=== PATIENT | female | born 1965 | race African-American/Black ===

== ENCOUNTER 2018-04-04 08:39 | Emergency (ER) | payer OTHER ==
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
[2018-04-04 09:29] VITALS: BP 148/93; TEMP 98.1; O2SAT 97
== END 2018-04-04 09:09 | disposition home or self-care (01) ==
LOC: ER 08:39
DX: M79.1 Myalgia (principal); V49.49XA Driver injured in collision with other motor vehicles in traffic accident, initial encounter; I10 Essential (primary) hypertension; Z88.8 Allergy status to other drugs, medicaments and biological substances; Z91.040 Latex allergy status; Z91.048 Other nonmedicinal substance allergy status
CPT/HCPCS: 99284

== ENCOUNTER 2019-09-06 07:41 | Emergency (ER) | payer OTHER ==
[2019-09-06] MEDS ORDERED: cloNIDine HCl 0.1 MG TAB ONE (08:24)
--- NOTE | 2019-09-06 08:54 | EKG ---
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
--- NOTE | 2019-09-06 09:22 | RAD REPORT ---
EXAM DESCRIPTION: Bailey Jordan (2 Views)09/06/2019 8:42 am CLINICAL HISTORY: Cough COMPARISON: 2017 FINDINGS: The lungs appear clear of acute infiltrate. The heart is normal size IMPRESSION: No acute abnormalities displayed
--- NOTE | 2019-09-06 09:55 | RAD REPORT ---
EXAM DESCRIPTION: CT - Head Brain Wo Cont - 09/06/2019 9:43 am CLINICAL HISTORY: Headache COMPARISON: 2018 TECHNIQUE: Computed axial tomography of the head was obtained. IV contrast was not requested. All CT scans are performed using dose optimization technique as appropriate and may include automated exposure control or mA/KV adjustment according to patient size. FINDINGS: An intracranial bleed is not seen . The ventricles are normal in caliber. No extra-axial fluid collection is noted. Mild to moderate low-density areas within periventricular, deep and subcortical white matter may naina jasper ischemic changes secondary to small vessel disease. No significant change since the prior exam Fluid within the sinuses/ mastoids is not seen. IMPRESSION: No acute intracranial abnormality is seen. If patient's symptoms persist MRI of the bra in would be recommended.
[2019-09-06] MEDS ORDERED: NA CHLORIDE 0.9% 1,000 ML ONE (10:21)
[2019-09-06] MEDS ORDERED: KETOROLAC 30 MG/ML INJ ONE (10:21)
[2019-09-06] MEDS ORDERED: DIPHENHYDRAMINE 50 MG/ML VIAL ONE (10:21)
[2019-09-06] MEDS ORDERED: METOCLOPRAMIDE 10 MG/2mL INJ ONE (10:21)
[2019-09-06 11:40] LABS: Absolute Lymphocytes (CBC) 1.4 K/uL (0.7-4.9); Basophils % 0.4 % (0-1.3); Hematocrit 36.3 % (36.0-45.0); Lymphocytes % 33.8 % (15.3-44.8); MPV 7.9 fL (7.6-11.3); RBC Red Blood Cell Count 4.32 M/uL (3.86-4.86)
[2019-09-06 11:58] LABS: Potassium 3.8 mmol/L (3.5-5.1)
--- NOTE | 2019-09-06 12:25 | RAD REPORT ---
EXAM DESCRIPTION: CT - Head angio - 09/06/2019 12:17 pm CLINICAL HISTORY: HEADACHE TECHNIQUE: During dynamic enhancement using nonionic IV contrast, axial 1 millimeter thick images of the head were obtained. Sagittal and axial reconstruction images were generated using MIP technique and reviewed. All CT scans are performed using dose optimization technique as appropriate and may include automated exposure control or mA/KV adjustment according to patient size. COMPARISON: CT head September 06 FINDINGS: No aneurysm or vascular malformation identified. Major venous sinuses are patent. No stenosis, named branch occlusion, vasculitis or other significant vascular finding identifiable. IMPRESSION: Negative CT angio head examination.
--- NOTE | 2019-09-06 12:30 | ER ---
Nurse's Notes [facility] Name: Nichelle Samuels Age: 54 yrs Sex: Female : 1965 Arrival Date: 09/06/2019 Time: 07:43 Bed 19 Private MD: Adolph Hernandes Diagnosis: Essential (primary) hypertension;Acute upper respiratory infection, unspecified;Headache Presentation: 09/06 07:59 Presenting complaint: Patient states: intermittent headache all week, also has scratchy iw throat, cough, mild chest pain when deep breathing, +hx of migraines but this headache feels different, also BP was high at home +blurry vision, +sensitivity to light. Transition of care: patient was not received from another setting of care. Onset of symptoms was August 31, 2019. Risk Assessment: Do you want to hurt yourself or someone else? Patient reports no desire to harm self or others. Initial Sepsis Screen: Does the patient meet any 2 criteria? No. Patient's initial sepsis screen is negative. Does the patient have a suspected source of infection? No. Patient's initial sepsis screen is negative. Care prior to arrival: None. 07:59 Method Of Arrival: Ambulatory iw 07:59 Acuity: CHANDLER 3 iw Triage Assessment: 08:02 Headache History: The patient has had previous headaches and this one is different than iw previous episodes. General: Appears in no apparent distress. 08:15 General: Behavior is cooperative, appropriate for age, anxious. Pain: Pain currently is bp 7 out of 10 on a pain scale. Pain began 1 day ago. Also complains of no other associated symptoms. Historical: - Allergies: 08:03 Latex, Natural Rubber; iw 08:03 Propranolol; iw - Home Meds: 08:24 amlodipine 10 mg tab 1 tab once daily [Active]; aspirin 81 mg Oral chew 1 tab once iw daily [Active]; citalopram 40 mg oral tab once daily [Active]; clopidogrel 75 mg Oral tab 1 tab once daily [Active]; lisinopril 20 mg oral tab twice a day [Active]; hydrochlorothiazide 25 mg Oral tab 1 tab 2 times per day [Active]; gabapentin 400 mg oral cap 1 cap 3 times per day [Active]; tizanidine 4 mg Oral tab 1 tab twice a day [Active]; ProAir HFA 90 mcg/actuation inhalation HFAA 2 puffs every 4-6 hours [Active]; Repatha Syringe 140 mg/mL subcutaneous syrg every 2 wks [Active]; unknown injection for headache as needed [Active]; Neurontin 100 mg Oral cap 1 caps twice a day [Active]; [place] 10-325 mg Oral tab 1 tab twice a day [Active]; 13:04 Crestor 10 mg Oral tab 1 tab once daily [Active]; bp - PMHx: 08:03 Asthma; CVA; DVT; Hyperlipidemia; Hypertension; Lupus; iw - PSHx: 08:03 multiple shoulder surgery; stent in right carotid artery; Hysterectomy; iw - Immunization history:: Adult Immunizations not up to date. - Social history:: Smoking status: Patient/guardian denies using tobacco. - Ebola Screening: : Patient negative for fever greater than or equal to 101.5 degrees Fahrenheit, and additional compatible Ebola Virus Disease symptoms Patient denies exposure to infectious person Patient denies travel to an Ebola-affected area in the 21 days before illness onset No symptoms or risks identified at this time. Screenin:12 Abuse screen: Denies threats or abuse. Denies injuries from another. Nutritional bp screening: No deficits noted. Tuberculosis screening: No symptoms or risk factors identified. Fall Risk None identified. Assessment: 08:11 General: SEE TRIAGE NOTE. Pain: Complains of pain in head. Neuro: Level of bp Consciousness is awake, alert, obeys commands, Oriented to person, place, time, situation, Appropriate for age. 09:47 Reassessment: PT RETURNED FROM CT. ALL CURRENT ORDERS COMPLETED. bp 11:36 Reassessment: CT ANGIO PENDING. bp 12:22 Reassessment: PT RETURNED FROM CTA. bp 13:02 Reassessment: PT D/C HOME AMBULATORY WITH FAMILY, DX WITH ESSENTIAL HTN. bp Vital Signs: 08:03 BP 166 / 100; Pulse 79; Resp 18; Temp 98.2; Pulse Ox 100% on R/A; Weight 69.4 kg; iw Height 5 ft. 2 in. (157.48 cm); Pain 6/10; 09:11 BP 135 / 100; Pulse 71; Resp 16; Pulse Ox 100% ; bp 09:49 BP 145 / 81; Pulse 64; Resp 17; Pulse Ox 98% ; bp 10:31 BP 127 / 88; Pulse 96; Resp 16; Pulse Ox 100% ; bp 11:36 BP 143 / 94; Pulse 54; Resp 16; Pulse Ox 99% ; bp 12:22 BP 125 / 90; Pulse 78; Resp 17; Pulse Ox 100% ; bp 08:03 Body Mass Index 27.98 (69.40 kg, 157.48 cm) iw NIH Stroke Scale Scores: 08:27 NIHSS Score: 0 kb ED Course: 07:43 Patient arrived in ED. rg4 07:43 Adolph Hernandes DO is Private Physician. rg4 07:51 Herman Piper, CARRIE is Primary Nurse. bp 07:51 [facility]. kb 07:51 Sixto Patel MD is Attending Physician. kb 08:02 Triage completed. iw 08:12 Patient has correct armband on for positive identification. Bed in low position. Call bp light in reach. Side rails up X2. 08:22 Strep Sent. dh3 08:22 Flu Sent. dh3 08:22 Flu and/or RSV swab sent to lab. Strep swab sent to lab. dh3 08:42 Chest Pa And Lat (2 Views) XRAY In Process Unspecified. EDMS 09:44 CT Head Brain wo Cont In Process Unspecified. EDMS 10:01 Throat Culture Sent. bp 10:19 Inserted saline lock: 22 gauge in right forearm, using aseptic technique. bp 12:18 CT Head Angio In Process Unspecified. EDMS 12:29 Adolph Hernandes DO is Referral Physician. kb 13:02 No provider procedures requiring assistance completed. IV discontinued, intact, bp bleeding controlled, No redness/swelling at site. Pressure dressing applied. 13:03 Arm band placed on. bp Administered Medications: 08:15 Drug: cloNIDine 0.1 mg Route: PO; bp 09:12 Follow up: Response: Blood pressure is lowered bp 10:20 Drug: NS 0.9% 1000 ml Route: IV; Rate: 1000 ml; Site: right forearm; bp 13:05 Follow up: IV Status: Completed infusion; IV Intake: 1000ml bp 10:20 Drug: Reglan 10 mg Route: IVP; Site: right forearm; bp 13:05 Follow up: Response: No adverse reaction bp 10:20 Drug: TORadol - Ketorolac 15 mg Route: IVP; Site: right forearm; bp 13:04 Follow up: Response: No adverse reaction bp 10:20 Drug: Benadryl 12.5 mg Route: IVP; Site: right forearm; bp 13:04 Follow up: Response: No adverse reaction bp Intake: 13:05 IV: 1000ml; Total: 1000ml. bp Outcome: 12:29 Discharge ordered by . holden 13:02 Discharged to home ambulatory, with family. bp 13:02 Condition: stable 13:02 Discharge instructions given to patient, Instructed on discharge instructions, follow up and referral plans. Demonstrated understanding of instructions, follow-up care. 13:05 Patient left the ED. bp NIH Stroke Scale - NIH Stroke Score Date: 09/06/2019 Time: 08:27 Total Score = 0 1a. Level of Consciousness (LOC) - 0(Alert) 1b. Level of Consciousness (LOC) (Year \T\ Age) - 0(Both) 1c. LOC Commands (Open \T\ Closes Eyes/Logistic Manager) - 0(Both) 2. Best Gaze (Lateral Gaze Paresis) - 0(Normal) 3. Visual Field Loss - 0(No visual loss) 4. Facial Palsy - 0(Normal) 5a. Left Arm: Motor (10-second hold) - 0(No drift) 5b. Right Arm: Motor (10-second hold) - 0(No drift) 6a. Left Leg: Motor (5-second hold - always test supine) - 0(No drift) 6b. Right Leg: Motor (5-second hold - always test supine) - 0(No drift) 7. Limb Ataxia (finger/nose \T\ heel/chi - test with eyes open) - 0(Absent) 8. Sensory Loss (pinprick arms/legs/face) - 0(Normal) 9. Best Language: Aphasia (description/naming/reading) - 0(No aphasia) 10. Dysarthria (speech clarity - read or repeat words) - 0(Normal) 11. Extinction and Inattention (visual/tactile/auditory/spatial/personal) - 0(No abnormality) Initials: holden Signatures: Dispatcher [employer] EDLu Herrera, [employer] CORPORATE OFFICER-Autumn Blevins, RN RN iw Janelle Pepe 4 Areli Lee 3 Herman Piper RN RN bp
--- NOTE | 2019-09-06 12:31 | EDPHYS ---
Physician Documentation [facility] Name: Nichelle Samuels Age: 54 yrs Sex: Female : 1965 Arrival Date: 09/06/2019 Time: 07:43 Bed 19 Private MD: Adolph Hernandes ED Physician Sixto Patel HPI: 09/06 08:31 This 54 yrs old Black Female presents to ER via Ambulatory with complaints of High kb Blood Pressure, Headache, Body Aches. 08:31 The patient or guardian reports cough, that is intermittent, described as mild, with no kb sputum, flu symptoms, myalgias. Onset: The symptoms/episode began/occurred yesterday. Severity of symptoms: At their worst the symptoms were mild, in the emergency department the symptoms are unchanged. Modifying factors: The symptoms are alleviated by nothing, the symptoms are aggravated by nothing. Associated signs and symptoms: Pertinent positives: sore throat. The patient has not experienced similar symptoms in the past. The patient has not recently seen a physician. Pt reports she has had a dry cough and sore throat for a couple of days, headache started last night. Still had headache this morning so she checked her blood pressure and it was 148/100 so she came in. Reports her PCP increased her BP medications because it wouldn't stay under control. Reports similar headache when her BP has been high in the past. . Historical: - Allergies: 08:03 Latex, Natural Rubber; iw 08:03 Propranolol; iw - Home Meds: 08:24 amlodipine 10 mg tab 1 tab once daily [Active]; aspirin 81 mg Oral chew 1 tab once iw daily [Active]; citalopram 40 mg oral tab once daily [Active]; clopidogrel 75 mg Oral tab 1 tab once daily [Active]; lisinopril 20 mg oral tab twice a day [Active]; hydrochlorothiazide 25 mg Oral tab 1 tab 2 times per day [Active]; gabapentin 400 mg oral cap 1 cap 3 times per day [Active]; tizanidine 4 mg Oral tab 1 tab twice a day [Active]; ProAir HFA 90 mcg/actuation inhalation HFAA 2 puffs every 4-6 hours [Active]; Repatha Syringe 140 mg/mL subcutaneous syrg every 2 wks [Active]; unknown injection for headache as needed [Active]; Neurontin 100 mg Oral cap 1 caps twice a day [Active]; [place] 10-325 mg Oral tab 1 tab twice a day [Active]; 13:04 Crestor 10 mg Oral tab 1 tab once daily [Active]; bp - PMHx: 08:03 Asthma; CVA; DVT; Hyperlipidemia; Hypertension; Lupus; iw - PSHx: 08:03 multiple shoulder surgery; stent in right carotid artery; Hysterectomy; iw - Immunization history:: Adult Immunizations not up to date. - Social history:: Smoking status: Patient/guardian denies using tobacco. - Ebola Screening: : Patient negative for fever greater than or equal to 101.5 degrees Fahrenheit, and additional compatible Ebola Virus Disease symptoms Patient denies exposure to infectious person Patient denies travel to an Ebola-affected area in the 21 days before illness onset No symptoms or risks identified at this time. ROS: 08:29 Eyes: Negative for injury, pain, redness, and discharge, Neck: Negative for injury, kb pain, and swelling, Cardiovascular: Negative for chest pain, palpitations, and edema, Abdomen/GI: Negative for abdominal pain, nausea, vomiting, diarrhea, and constipation, Back: Negative for injury and pain, MS/Extremity: Negative for injury and deformity, Skin: Negative for injury, rash, and discoloration. 08:29 ENT: Positive for sore throat. 08:29 Respiratory: Positive for cough, Negative for dyspnea on exertion, hemoptysis, orthopnea, pleurisy, shortness of breath, sputum production, wheezing. 08:29 Neuro: Positive for headache. 08:33 Constitutional: Positive for body aches. kb Exam: 08:27 Constitutional: This is a well developed, well nourished patient who is awake, alert, kb and in no acute distress. Head/Face: Normocephalic, atraumatic. Eyes: Pupils equal round and reactive to light, extra-ocular motions intact. Lids and lashes normal. Conjunctiva and sclera are non-icteric and not injected. Cornea within normal limits. Periorbital areas with no swelling, redness, or edema. ENT: Nares patent. No nasal discharge, no septal abnormalities noted. Tympanic membranes are normal and external auditory canals are clear. Oropharynx with no redness, swelling, or masses, exudates, or evidence of obstruction, uvula midline. Mucous membranes moist. Neck: Trachea midline, no thyromegaly or masses palpated, and no cervical lymphadenopathy. Supple, full range of motion without nuchal rigidity, or vertebral point tenderness. No Meningismus. Chest/axilla: Normal chest wall appearance and motion. Nontender with no deformity. No lesions are appreciated. Cardiovascular: Regular rate and rhythm with a normal S1 and S2. No gallops, murmurs, or rubs. Normal PMI, no JVD. No pulse deficits. Respiratory: Lungs have equal breath sounds bilaterally, clear to auscultation and percussion. No rales, rhonchi or wheezes noted. No increased work of breathing, no retractions or nasal flaring. Abdomen/GI: Soft, non-tender, with normal bowel sounds. No distension or tympany. No guarding or rebound. No evidence of tenderness throughout. Skin: Warm, dry with normal turgor. Normal color with no rashes, no lesions, and no evidence of cellulitis. MS/ Extremity: Pulses equal, no cyanosis. Neurovascular intact. Full, normal range of motion. Neuro: Awake and alert, GCS 15, oriented to person, place, time, and situation. Cranial nerves II-XII grossly intact. Motor strength 5/5 in all extremities. Sensory grossly intact. Cerebellar exam normal. Normal gait. Vital Signs: 08:03 BP 166 / 100; Pulse 79; Resp 18; Temp 98.2; Pulse Ox 100% on R/A; Weight 69.4 kg; iw Height 5 ft. 2 in. (157.48 cm); Pain 6/10; 09:11 BP 135 / 100; Pulse 71; Resp 16; Pulse Ox 100% ; bp 09:49 BP 145 / 81; Pulse 64; Resp 17; Pulse Ox 98% ; bp 10:31 BP 127 / 88; Pulse 96; Resp 16; Pulse Ox 100% ; bp 11:36 BP 143 / 94; Pulse 54; Resp 16; Pulse Ox 99% ; bp 12:22 BP 125 / 90; Pulse 78; Resp 17; Pulse Ox 100% ; bp 08:03 Body Mass Index 27.98 (69.40 kg, 157.48 cm) iw NIH Stroke Scale Scores: 08:27 NIHSS Score: 0 kb MDM: 07:51 Patient medically screened. kb 08:28 Data reviewed: vital signs, nurses notes. Data interpreted: Pulse oximetry: on room air kb is 100 %. Interpretation: normal. ED course: Stroke scale negative. Pt working on laptop while in room.. 10:16 ED course: Pt reports she is still having a headache. Educated that since she is still kb having the headache with a normal blood pressure I will give her medications for the pain now. Pt requests IV medications. Has history of migraines. . 11:15 ED course: PT concerned that her BP came back up to 139/96. Headache gone after kb medications. Discussed pt condition and diagnostics with ERP. Will do labs and CT angio due to pt's history. Pt educated on plan and is in agreement. . 12:29 Counseling: I had a detailed discussion with the patient and/or guardian regarding: the kb historical points, exam findings, and any diagnostic results supporting the discharge/admit diagnosis, lab results, radiology results, the need for outpatient follow up, a family practitioner, to return to the emergency department if symptoms worsen or persist or if there are any questions or concerns that arise at home. 09/06 08:07 Order name: Flu; Complete Time: 08:42 kb 09/06 08:07 Order name: Strep; Complete Time: 08:37 kb 09/06 08:07 Order name: Chest Pa And Lat (2 Views) XRAY; Complete Time: 09:26 kb 09/06 08:40 Order name: Throat Culture EDMS 09/06 11:14 Order name: CBC with Diff; Complete Time: 11:49 kb 09/06 11:14 Order name: Basic Metabolic Panel; Complete Time: 12:06 kb 09/06 08:07 Order name: EKG; Complete Time: 08:07 kb 09/06 09:26 Order name: CT Head Brain wo Cont; Complete Time: 09:58 kb 09/06 11:14 Order name: CT Head Angio; Complete Time: 12:29 kb 09/06 08:07 Order name: EKG - Nurse/Tech; Complete Time: 08:22 kb 09/06 10:14 Order name: IV Start; Complete Time: 10:19 kb Administered Medications: 08:15 Drug: cloNIDine 0.1 mg Route: PO; bp 09:12 Follow up: Response: Blood pressure is lowered bp 10:20 Drug: NS 0.9% 1000 ml Route: IV; Rate: 1000 ml; Site: right forearm; bp 13:05 Follow up: IV Status: Completed infusion; IV Intake: 1000ml bp 10:20 Drug: Reglan 10 mg Route: IVP; Site: right forearm; bp 13:05 Follow up: Response: No adverse reaction bp 10:20 Drug: TORadol - Ketorolac 15 mg Route: IVP; Site: right forearm; bp 13:04 Follow up: Response: No adverse reaction bp 10:20 Drug: Benadryl 12.5 mg Route: IVP; Site: right forearm; bp 13:04 Follow up: Response: No adverse reaction bp Disposition: 13:35 Co-signature as Attending Physician, Sixto Patel MD. rn Disposition: 09/06/19 12:29 Discharged to Home. Impression: Essential (primary) hypertension, Acute upper respiratory infection, unspecified, Headache. - Condition is Stable. - Discharge Instructions: Upper Respiratory Infection, Adult, Ucom-dt-Kqpy, Hypertension, Aoao-tl-Wpwi, Migraine Headache, Hkmx-ic-Cjqq, Viral Respiratory Infection, Udcc-Pa-Civy. - Medication Reconciliation Form, Thank You Letter, Antibiotic Education, Prescription Opioid Use, Work release form form. - Follow up: Emergency Department; When: As needed; Reason: Worsening of condition. Follow up: Adolph Hernandes DO; When: 2 - 3 days; Reason: Recheck today's complaints, Continuance of care, Re-evaluation by your physician. NIH Stroke Scale - NIH Stroke Score Date: 09/06/2019 Time: 08:27 Total Score = 0 1a. Level of Consciousness (LOC) - 0(Alert) 1b. Level of Consciousness (LOC) (Year \T\ Age) - 0(Both) 1c. LOC Commands (Open \T\ Closes Eyes/Assistant County Attorney) - 0(Both) 2. Best Gaze (Lateral Gaze Paresis) - 0(Normal) 3. Visual Field Loss - 0(No visual loss) 4. Facial Palsy - 0(Normal) 5a. Left Arm: Motor (10-second hold) - 0(No drift) 5b. Right Arm: Motor (10-second hold) - 0(No drift) 6a. Left Leg: Motor (5-second hold - always test supine) - 0(No drift) 6b. Right Leg: Motor (5-second hold - always test supine) - 0(No drift) 7. Limb Ataxia (finger/nose \T\ heel/chi - test with eyes open) - 0(Absent) 8. Sensory Loss (pinprick arms/legs/face) - 0(Normal) 9. Best Language: Aphasia (description/naming/reading) - 0(No aphasia) 10. Dysarthria (speech clarity - read or repeat words) - 0(Normal) 11. Extinction and Inattention (visual/tactile/auditory/spatial/personal) - 0(No abnormality) Initials: kb Signatures: Dispatcher [employer] EDMS Lu Aguiar, MASTER PLANNER-C MASTER PLANNER-Ckb Autumn Barrios, CARRIE RN Sixto Lopez MD MD rn Peltier, Brian, RN RN bp Corrections: (The following items were deleted from the chart) 08:33 08:29 Constitutional: Negative for fever, chills, and weight loss, Eyes: kb Negative for injury, pain, redness, and discharge, Neck: Negative for injury, pain, and swelling, Cardiovascular: Negative for chest pain, palpitations, and edema, Abdomen/GI: Negative for abdominal pain, nausea, vomiting, diarrhea, and constipation, Back: Negative for injury and pain, MS/Extremity: Negative for injury and deformity, Skin: Negative for injury, rash, and discoloration, kb 11:17 10:08 Counseling: I had a detailed discussion with the patient and/or guardian holden regarding: the historical points, exam findings, and any diagnostic results supporting the discharge/admit diagnosis, lab results, radiology results, the need for outpatient follow up, a family practitioner, to return to the emergency department if symptoms worsen or persist or if there are any questions or concerns that arise at home, kb 13:05 12:29 09/06/2019 12:29 Discharged to Home. Impression: Essential (primary) bp hypertension; Acute upper respiratory infection, unspecified; Headache. Condition is Stable. Forms are Medication Reconciliation Form, Thank You Letter, Antibiotic Education, Prescription Opioid Use. Follow up: Emergency Department; When: As needed; Reason: Worsening of condition. Follow up: Adolph Hernandes; When: 2 - 3 days; Reason: Recheck today's complaints, Continuance of care, Re-evaluation by your physician. kb
[2019-09-06 13:13] VITALS: TEMP 98.2
[2019-09-06 13:20] VITALS: BP 125/90; O2SAT 100
== END 2019-09-06 13:05 | disposition home or self-care (01) ==
LOC: ER 07:41
DX: I10 Essential (primary) hypertension (principal); J06.9 Acute upper respiratory infection, unspecified; E78.5 Hyperlipidemia, unspecified; J45.909 Unspecified asthma, uncomplicated; Z79.82 Long term (current) use of aspirin; Z88.8 Allergy status to other drugs, medicaments and biological substances; Z86.718 Personal history of other venous thrombosis and embolism; Z86.73 Personal history of transient ischemic attack (TIA), and cerebral infarction without residual deficits; Z91.040 Latex allergy status; Z91.048 Other nonmedicinal substance allergy status; Z95.818 Presence of other cardiac implants and grafts
CPT/HCPCS: 96361; 93005; 87070; 85025; 80048; 36415; 87081; 87804 ×2; 70450; 70496; 71046; 96375; 96374; 99284; Q9967; J2765; J1200; J7030

== ENCOUNTER 2019-12-24 06:16 | Day surgery (SDC) | payer MEDICARE ==
[2019-12-23 12:21] LABS: Basophils % 0.7 % (0-1.3); Hematocrit 41.2 % (36.0-45.0); MPV 8.2 fL (7.6-11.3); RBC Red Blood Cell Count 4.92 M/uL (3.86-4.86)
[2019-12-23 12:35] LABS: BUN Blood Urea Nitrogen 18 mg/dL (7-18); Bicarbonate 29 mmol/L (21-32); Glucose Level 71 mg/dL (74-106); Potassium 3.9 mmol/L (3.5-5.1); Sodium Level 140 mmol/L (136-145)
--- OUTSIDE RECORDS SUMMARY | 2019-12-24 06:24 | XMS REPORT ---
:1965 Author Organization [facility] Address [address] [place] [address] [address] [place] [address] Care Team Providers Name Role Phone Unavailable Unavailable Unavailable Problems This patient has no known problems. Allergies, Adverse Reactions, Alerts This patient has no known allergies or adverse reactions. Medications This patient has no known medications.
--- OUTSIDE RECORDS SUMMARY | 2019-12-24 06:25 | XMS REPORT | Summary of Care ---
:1965 Author Name Misa Masterson M.A. Address Unavailable Unavailable , Care Team Providers Name Role Phone WENDY SWANSON M.D. Unavailable Unavailable JONATAN NEELY M.D. Unavailable Unavailable VICTOR MANUEL MELENDEZ Unavailable Unavailable CHONG VILLARREAL Unavailable Unavailable FLORINDA OBRIEN [place], JONATAN PLATT Unavailable Unavailable Unavailable Unavailable Unavailable Functional Status Name Dates Details Functional status health issues are not documented Status: Name Dates Details Cognitive status health issues are not documented Status: Problems Name Dates Details Acute bursitis of left shoulder (726.10, M75.52) Status: Active Anxiety disorder (300.00, F41.9) Status: Active Dissection of carotid artery (443.21, I77.71) Status: Active Cerebral embolism (434.10, I66.9) Status: Active Knee pain, left (719.46, M25.562) Status: Active Medications Name Dates Details Cyclobenzaprine HCl - 10 MG Oral Tablet TAKE 1 TABLET 3 TIMES DAILY NEEDED. Quantity: 30 Refills: 0 VICTOR MANUEL MELENDEZ Start : 07-Jun-2016 Active Acetaminophen-Codeine 300-30 MG Oral Tablet TAKE 1 TABLET EVERY 6 HOURS NEEDED FOR PAIN. Quantity: 40 Refills: 0 JONATAN NEELY M.D. Start : 12-Aug-2016 Active Aspirin 81 81 MG Oral Tablet Delayed Release Refills: 0 Active Lisinopril 10 MG Oral Tablet TAKE 1 TABLET DAILY. Quantity: 90 Refills: 0 Active Plavix 75 MG Oral Tablet TAKE 1 TABLET DAILY Refills: 0 Active Lipitor 80 MG Oral Tablet Refills: 0 Active Citalopram Hydrobromide 20 MG Oral Tablet TAKE 1/2 TABLET DAILY. Quantity: 15 Refills: 5 WENDY SWANSON M.D. Start : 03-May-2011 Active Allergies and Adverse Reactions Name Dates Details No Known Allergies (Allergy) Status: Active Procedures Procedure Dates Details [U] XRAY KNEE 3 VWS LEFT 14174 Date: 22-Dec-2019 Immunization Name Dates Details Immunizations not documented Social History Name Dates Details - Status: Name Dates Details Unknown if ever smoked Vital Signs Date Test Result Details No Known Vitals to report Results Date Description Value Details Results not documented Plan of Care Name Dates Details Planned Observations Planned Goals not documented Interventions Provided Labs/Procedures/Imaging[U] XRAY KNEE 3 VWS LEFT 23459; To Be Done: 22 Dec 2019 Instructions Name Dates Details Instructions not documented Encounters Appointment; JONATAN NEELY M.D. On: 15-Jul-2018 10:15 Encounter Diagnosis: Problem not documented Appointment; JONATAN NEELY M.D. On: 22-Dec-2019 9:00 Encounter Diagnosis: Problem not documented
--- OUTSIDE RECORDS SUMMARY | 2019-12-24 06:26 | XMS REPORT | Summary of Care ---
:1965 Author Name Angela Chavez M.A. Address [facility] Unavailable , Care Team Providers Name Role Phone WENDY SWANSON M.D. Unavailable Unavailable JONATAN NEELY M.D. Unavailable Unavailable VICTOR MANUEL MELENDEZ Unavailable Unavailable CHONG VILLARREAL Unavailable Unavailable FLORINDA OBRIEN [place], JONATAN PLATT Unavailable Unavailable Unavailable Unavailable Unavailable [...] Knee pain, left (719.46, M25.562) Status: Active Acute pain of left shoulder (719.41, M25.512) Status: Active Rotator cuff strain, left, initial encounter (840.4, S46.012A) Status: Active Medications Name Dates Details Cyclobenzaprine [...] WENDY SWANSON M.D. Start : 03-May-2011 Active diazePAM 5 MG Oral Tablet TAKE 1 TABLET 30 MINUTES PRIOR TO PROCEDURE. Quantity: 1 Refills: 0 JONATAN NEELY M.D. Start : 22-Dec-2019 Active Allergies and Adverse Reactions Name Dates Details No Known Allergies (Allergy) Status: Active Procedures Procedure Dates Details MR Shoulder w contrast [id number] Date: 22-Dec-2019 XRAY Shoulder arthrogram [id number] Date: 22-Dec-2019 Immunization Name Dates Details Immunizations not documented Social History Name Dates Details - Status: Name Dates Details Unknown if ever smoked Vital Signs Date Test Result Details No Known Vitals to report Results Date Description Value Details 22-Dec-20199:21 [U] XRAY KNEE 3 VWS LEFT 11074 XR KNEE 3 VWS LEFT Images acquired, not reported on this accession number. Plan of Care Name Dates Details Planned Observations Planned Goals not documented Interventions Provided Medication ChangesdiazePAM 5 MG Oral Tablet - StartLabs/Procedures/ImagingMR Shoulder w contrast [id number]; To Be Done: 22 Dec 2019XRAY Shoulder arthrogram 24458 ; To Be Done: 22 Dec 2019[U] XRAY KNEE 3 VWS LEFT 86241; Done: 22 Dec 2019 Instructions Name Dates Details Instructions not documented Encounters Appointment; JONATAN NEELY M.D. On: 15-Jul-2018 10:15 Encounter Diagnosis: Problem not documented Appointment; JONATAN NEELY M.D. On: 22-Dec-2019 9:00 Encounter Diagnosis: Problem not documented
[2019-12-24] MEDS ORDERED: Ringers Lactate 1,000 ML IV ONE ×2 (06:40→08:56)
[2019-12-24] MEDS ORDERED: FENTANYL CITR 100 MCG/2 ML ONE (07:12)
[2019-12-24] MEDS ORDERED: propofoL 200 MG/20 ML VIAL IV ONE (07:12)
[2019-12-24] MEDS ORDERED: LIDOCAINE 2% MPF 5 ML VIAL ONE (07:12)
[2019-12-24] MEDS ORDERED: MIDAZOLAM HCL 2 MG/2 ML INJ ONE (07:12)
[2019-12-24] MEDS ORDERED: ONDANSETRON 4 MG/2 ML VIAL ONE ×2 (07:13→09:07)
[2019-12-24] MEDS ORDERED: KETOROLAC 30 MG/ML INJ ONE (08:08)
[2019-12-24] MEDS ORDERED: MEPERIDINE HCL 25 MG/0.5 ML ONE (08:15)
[2019-12-24] MEDS: HYDROMORPHONE HCL 2 MG/ML inj ONE ×4 (08:40→08:58)
[2019-12-24 09:02] VITALS: O2SAT 100
[2019-12-24 09:36] VITALS: BP 113/66; TEMP 96.7
[2019-12-24] MEDS ORDERED: HYDROCODONE/APAP 10/325 TAB ONE (11:09)
[2019-12-24] MEDS ORDERED: DIPHENHYDRAMINE 25 MG TAB/CAP ONE (11:10)
--- NOTE | 2019-12-24 18:52 | OP ---
Date of Procedure: 12/24/2019 Surgeon: Cirilo Saleh MD Preoperative Diagnosis: Left anterior knee mass. Postoperative Diagnosis: Left anterior knee mass. Procedure: Excisional biopsy of left anterior knee mass. Estimated Blood Loss: Less than 5 cc. Complications: There were no complications. Specimens: Cultures and pathology specimen are sent. Indication For Operation: Ms. 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 She unfortunately fell injuring her left lower extremity. She i s following my office quite sometime ago where x-rays were taken and she did have some anterior swell ing of her knee, however, was felt best to observe this as there did not appear to be any reason for emergent surgical treatment. She then came back to see me stating that she has developed a lump over the front of her knee. This was treated nonoperatively in hopes that this would resolve. Unfortuna tely, over the time, it apparently has not resolved, although sometimes does become larger and smalle r. It is persistent and bothersome for her. She does have an MRI, which demonstrates some inflammat ion of the tendon and a later CT scan, which demonstrated a fluid collection anterior to the tendon i n the region of the tibial tubercle. Despite 2 attempts at aspiration, this persists, it is very bot hersome for her and she requested to be excised. Description Of Procedure: The patient was taken to the operating room and placed in supine position. General anesthesia was obtained by staff. Following this, a well-padded tourniquet placed on super ior left thigh. Left lower extremity was then prepped and draped in usual sterile fashion for the pr ocedure. Following this, leg was then elevated, but not exsanguinated. Tourniquet was raised and in cision was made, which intentionally deviates laterally from the tibial tubercle and tendon to hopefu lly not cause scarring of the skin over the tubercle and anterior knee; however, this was then underm ined in a full-thickness flap to reveal the underlying mass. This was dissected out from a 12 o'cloc k to 6 o'clock position laterally. It was also then dissected out from a 12 o'clock to 6 o'clock pos ition medially. The patellar tendon was protected as it was then undermined under the mass itself, w hich was then gently removed using scissors and was removed in total. Neither the patellar tendon no r knee are violated. Bovie cautery was used to cauterize anything, which appeared to be bleeding. T he wound was then irrigated. Cultures were taken from the interior of the mass, which appears to be filled with old blood. There is no grayson purulent material seen. The tourniquet was dropped and any bleeding was addressed using Bovie electrocautery as well as pressure. After this, the wound was th en closed using interrupted horizontal mattress 2-0 nylon sutures. The patient was then placed in Aq uacel dressing and likely compressive Cornelio wrap, awakened and taken to recovery room in good condition . There were no complications. /JONH Voice ID: [id number] Report ID: [id number]
== END 2019-12-24 11:40 | disposition home or self-care (01) ==
LOC: OR 06:16
PROVIDERS: ATTEND Orthopaedic Surgery
PROC: 0JBP0ZZ Excision of Left Lower Leg Subcutaneous Tissue and Fascia, Open Approach (ICD-10-PCS; principal; 2019-12-24 07:30)
DX: R22.42 Localized swelling, mass and lump, left lower limb (principal); I10 Essential (primary) hypertension; J45.909 Unspecified asthma, uncomplicated; F32.9 Major depressive disorder, single episode, unspecified; Z79.01 Long term (current) use of anticoagulants; Z88.4 Allergy status to anesthetic agent; Z91.040 Latex allergy status; Z86.73 Personal history of transient ischemic attack (TIA), and cerebral infarction without residual deficits
CPT/HCPCS: 87070; 85025; 80048; 36415; 87205; 88304; 87075; 11406; J2704; J2250; J1170; J3010; J2175; J7120 ×2; J2405 ×2